=== PATIENT | female | born 1960 | race Caucasian/White ===

== ENCOUNTER 2016-10-05 17:43 | Emergency (ER) | payer MEDICARE, BC ==
[2016-10-05 20:15] LABS: HEMOGLOBIN 12.7 gm/dl (12.3-15.3); RED BLOOD COUNT 4.16 M/UL (4.00-5.10); WHITE BLOOD COUNT 6.7 K/UL (4.5-11.0)
[2016-10-05 20:29] LABS: BUN/CREATININE RATIO 20 (0-10)
== END 2016-10-05 21:50 | disposition home or self-care (01) ==
LOC: ER1 17:43
PROVIDERS: Physician Assistant Medical
DX: S40.261A Insect bite (nonvenomous) of right shoulder, initial encounter (principal); M54.12 Radiculopathy, cervical region; E11.9 Type 2 diabetes mellitus without complications; I10 Essential (primary) hypertension; Z79.84 Long term (current) use of oral hypoglycemic drugs; Z88.1 Allergy status to other antibiotic agents; Z88.5 Allergy status to narcotic agent; Z88.8 Allergy status to other drugs, medicaments and biological substances; Z87.891 Personal history of nicotine dependence; Z96.9 Presence of functional implant, unspecified; W57.XXXA Bitten or stung by nonvenomous insect and other nonvenomous arthropods, initial encounter
CPT/HCPCS: 36415; 72125; 80053; 85025; 99283